=== PATIENT | female | born 1990 | race Caucasian/White ===

== ENCOUNTER 2016-12-14 11:53 | Emergency (ER) | payer BC ==
[~2016-12-14] VITALS: Ht 162.6 cm; Wt 69.9 kg
[2016-12-14 11:58] VITALS: BP 134/68
--- NOTE | 2016-12-14 12:43 | NUR ---
Patient ambulated to bed 07.
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
[2016-12-14] MEDS ORDERED: METHOCARBAMOL 500 MG TAB PO SCH (13:05)
[2016-12-14 14:30] VITALS: BP 105/68
--- NOTE | 2016-12-14 14:30 | NUR ---
Patient discharged with v/s stable. Written and verbal after care instructions given and explained. Patient alert, oriented and verbalized understanding of instructions. Ambulatory with steady gait. All questions addressed prior to discharge. ID band removed. Patient advised to follow up with PMD. Rx of MOTRIN, ROBAXIN given. Patient educated on indication of medication including possible reaction and side effects. Opportunity to ask questions provided and answered.
== END 2016-12-14 14:30 | disposition home or self-care (01) ==
LOC: MED 11:53
DX: S43.402A Unspecified sprain of left shoulder joint, initial encounter (principal); S13.4XXA Sprain of ligaments of cervical spine, initial encounter; M54.5 Low back pain; V43.52XA Car driver injured in collision with other type car in traffic accident, initial encounter; Y93.I9 Activity, other involving external motion; Y92.488 Other paved roadways as the place of occurrence of the external cause; Y99.8 Other external cause status
CPT/HCPCS: 71010; 73030; 99284; Q0092